=== PATIENT | female | born 1990 | race Hispanic/Latino ===

== ENCOUNTER 2018-06-26 21:03 | Emergency (ER) | payer OTHER ==
[~2018-06-26] VITALS: Ht 175.3 cm; Wt 99.8 kg
--- OUTSIDE RECORDS SUMMARY | 2018-06-26 21:05 | XMS REPORT | Continuity of Care Document ---
Author Author [facility] Interface Address Unknown Phone Unavailable Problems Problem Status Onset Date Classification Date Reported Comments Source Discharge Diagnosis: Suicidal ideation 05/04/2017 05/07/2017 [facility] Discharge Diagnosis: Homicidal ideation 05/04/2017 05/07/2017 [facility] Auditory hallucinations Resolved 05/04/2017 Problem 05/07/2017 [facility] Homicidal thoughts Resolved 05/04/2017 Problem 05/07/2017 [facility] Suicidal thoughts Resolved 05/04/2017 Problem 05/07/2017 [facility] SUICIDAL Active 05/04/2017 [facility] SHOULDER PAIN Active 03/02/2017 [facility] Adjustment disorder with depressed mood Active Problem 05/07/2017 [facility] Simple obesity Active Problem 05/07/2017 [facility] Medications Medication Details Route Status Patient Instructions Ordering Provider Order Date Source Ativan 1 mg, Route: IVP, Drug form: INJ, ONCE, Dosing Weight 95.455, kg, Priority: STAT, Start date: 05/04/17 5:06:00 COUNTER POCKET SEWER, Stop date: 05/04/17 5:06:00 COUNTER POCKET SEWER Inactive 05/04/2017 [facility] Diazepam 5 mg, Route: PO, ONCE, Dosing Weight 95.455, kg, Priority: STAT, Start date: 05/04/17 4:59:00 COUNTER POCKET SEWER, Stop date: 05/04/17 4:59:00 COUNTER POCKET SEWER Inactive 05/04/2017 [facility] Allergies, Adverse Reactions, Alerts Substance Category Reaction Severity Reaction type Status Date Reported Comments Source Immunizations Immunization Date Given Site Status Last Updated Comments Source Results Order Name Results Value Reference Range Date Interpretation Comments Source DRUG SCREEN U Cornelia Scr Negative *NA* (05/04/17 7:49 AM) Negative 05/04/2017 [facility] DRUG SCREEN U Amph Scr Negative *NA* (05/04/17 7:49 AM) Negative 05/04/2017 [facility] DRUG SCREEN U Phencyc Scr Negative *NA* (05/04/17 7:49 AM) Negative 05/04/2017 [facility] DRUG SCREEN U Benzodia Scr Negative *NA* (05/04/17 7:49 AM) Negative 05/04/2017 [facility] DRUG SCREEN U Cannab Scr Negative *NA* (05/04/17 7:49 AM) Negative 05/04/2017 [facility] DRUG SCREEN U Cocaine Scr Negative *NA* (05/04/17 7:49 AM) Negative 05/04/2017 [facility] DRUG SCREEN UDS Note See Note *NA* (05/04/17 7:49 AM) 05/04/2017 [facility] DRUG SCREEN U Opiate Scr Negative *NA* (05/04/17 7:49 AM) Negative 05/04/2017 [facility] CHEM PANEL Glucose Lvl 102 mg/dL 70 - 99 05/04/2017 [facility] CHEM PANEL BUN 8 mg/dL 7 - 22 05/04/2017 [facility] CHEM PANEL eGFR 117 mL/min/1.73m2 05/04/2017 Result Comment: The eGFR is calculated using the CKD-EPI formula. In most young, healthy individuals the eGFR will be >90 mL/min/1.73m2. The eGFR declines with age. An eGFR of 60-89 may be normal in some populations, particularly the elderly, for whom the CKD-EPI formula has not been extensively validated. Use of the eGFR is not recommended in the following populations: Individuals with unstable creatinine concentrations, including patients and those with serious co-morbid conditions. Patients with extremes in muscle mass or diet. The data above are obtained from the National Kidney Disease Education Program (NKDEP) which additionally recommends that when the eGFR is used in patients with extremes of body mass index for purposes of drug dosing, the eGFR should be multiplied by the estimated BMI. [facility] CHEM PANEL Bili Total 0.3 mg/dL 0.2 - 1.3 05/04/2017 [facility] CHEM PANEL Alk Phos 58 unit/L 39 - 136 05/04/2017 [facility] CHEM PANEL AST 12 unit/L 0 - 37 05/04/2017 [facility] CHEM PANEL Total Protein 8.1 g/dL 6.4 - 8.4 05/04/2017 [facility] CHEM PANEL Albumin Lvl 3.4 g/dL 3.5 - 5.0 05/04/2017 [facility] CHEM PANEL Calcium Lvl 8.9 mg/dL 8.5 - 10.5 05/04/2017 [facility] CHEM PANEL ALT 14 unit/L 0 - 65 05/04/2017 [facility] CHEM PANEL Creatinine Lvl 0.71 mg/dL 0.50 - 1.40 05/04/2017 [facility] CHEM PANEL Sodium Lvl 140 meq/L 135 - 145 05/04/2017 [facility] CHEM PANEL Potassium Lvl 3.6 meq/L 3.5 - 5.1 05/04/2017 [facility] CHEM PANEL Chloride Lvl 105 meq/L 95 - 109 05/04/2017 [facility] CHEM PANEL CO2 25 meq/L 24 - 32 05/04/2017 [facility] CHEM PANEL A/G Ratio 0.7 0.7 - 1.6 05/04/2017 [facility] CHEM PANEL B/C Ratio 11 6 - 25 05/04/2017 [facility] CHEM PANEL AGAP 13.6 meq/L 10.0 - 20.0 05/04/2017 [facility] CHEM PANEL Globulin 4.7 g/dL 2.7 - 4.2 05/04/2017 [facility] HEMATOLOGY WBC 11.7 K/CMM 3.7 - 10.4 05/04/2017 [facility] MCH 23.3 pg 27.0 - 31.0 05/04/2017 [facility] HEMATOLOGY Platelet 373 K/CMM 133 - 450 05/04/2017 [facility] HEMATOLOGY RDW 15.5 % 11.5 - 14.5 05/04/2017 [facility] HEMATOLOGY MPV 8.7 fL 7.4 - 10.4 05/04/2017 [facility] HEMATOLOGY MCHC 31.4 g/dL 32.0 - 36.0 05/04/2017 [facility] HEMATOLOGY Hgb 11.1 g/dL 12.0 - 16.0 05/04/2017 [facility] HEMATOLOGY MCV 74.1 fL 80.0 - 98.0 05/04/2017 [facility] HEMATOLOGY RBC 4.76 M/CMM 4.20 - 5.40 05/04/2017 [facility] HEMATOLOGY Hct 35.3 % 36.0 - 48.0 05/04/2017 [facility] HEMATOLOGY Segs-Bands # 9.8 K/CMM 1.5 - 8.1 05/04/2017 [facility] HEMATOLOGY Basophils 0.2 % 0.0 - 1.0 05/04/2017 [facility] HEMATOLOGY Monocytes 5.2 % 2.0 - 12.0 05/04/2017 [facility] HEMATOLOGY Lymphocytes 10.5 % 20.0 - 40.0 05/04/2017 [facility] HEMATOLOGY Eosinophils 0.2 % 0.0 - 4.0 05/04/2017 [facility] HEMATOLOGY Segs 83.9 % 45.0 - 75.0 05/04/2017 [facility] HEMATOLOGY Lymphocytes # 1.2 K/CMM 1.0 - 5.5 05/04/2017 [facility] HEMATOLOGY Monocytes # 0.6 K/CMM 0.0 - 0.8 05/04/2017 [facility] HEMATOLOGY Microcyte 1+ *ABN* (05/04/17 4:29 AM) None Seen 05/04/2017 [facility] TOXICOLOGY Salicylate Lvl null 0.0 - 30.0 05/04/2017 [facility] TOXICOLOGY Acetaminoph Lvl <2
(05/04/17 4:29 AM) 10 - 20 05/04/2017 [facility] TOXICOLOGY Ethanol Lvl null 05/04/2017 [facility] TOXICOLOGY Etoh (%) null 05/04/2017 [facility] Vital Signs Vital Sign Value Date Comments Source Temperature Oral (F) 98.7 F 05/04/2017 [facility] Respitory Rate 16 05/04/2017 [facility] Heart Rate 98 05/04/2017 [facility] Systolic (mm Hg) 111 05/04/2017 [facility] Diastolic (mm Hg) 72 05/04/2017 [facility] Temperature Oral (F) 98.7 F 05/04/2017 [facility] Systolic (mm Hg) 109 05/04/2017 [facility] Diastolic (mm Hg) 61 05/04/2017 [facility] Respitory Rate 16 05/04/2017 [facility] Heart Rate 101 05/04/2017 [facility] Systolic (mm Hg) 115 05/04/2017 [facility] Diastolic (mm Hg) 79 05/04/2017 [facility] Heart Rate 92 05/04/2017 [facility] Respitory Rate 18 05/04/2017 [facility] Temperature Oral (F) 98.6 F 05/04/2017 [facility] Weight 95.455 05/04/2017 [facility] BMI Calculated 33.97 05/04/2017 [facility] Height 167.64 cm 05/04/2017 [facility] Height 170.18 cm 03/03/2017 [facility] Weight 93.182 03/03/2017 [facility] BMI Calculated 32.17 03/03/2017 [facility] Heart Rate 80 03/03/2017 [facility] Systolic (mm Hg) 124 03/03/2017 [facility] Diastolic (mm Hg) 78 03/03/2017 [facility] Respitory Rate 20 03/03/2017 [facility] Temperature Oral (F) 98.2 F 03/03/2017 [facility] Encounters Location Location Details Encounter Type Encounter Number Reason For Visit Attending Provider ADM Date DC Date Status Source [facility] Emergency [id number] Zonia Massiel 03/02/2017 03/03/2017 [facility] Emergency [id number] Cale Madrid 05/04/2017 05/04/2017 [facility] Outpatient [id number] JAMES WASHBURN 05/04/2017 Active [facility] Procedures Procedure Code Date Perfomer Comments Source Procedure<sup>1</sup> [id number] bunionectomy [facility]
--- OUTSIDE RECORDS SUMMARY | 2018-06-26 21:05 | XMS REPORT | Summary of Care ---
Author Author [facility] Organization [facility] Address Unknown Phone Unavailable Encounter HQ Debbei_estella(BARTOLO) [id number] Date(s): 03/02/17 - 03/02/17 [facility] [address] [place] [address]- [phone] Discharge Disposition: Non-Emergent Attending Physician: Zonia Rankin MD Vital Signs Most recent to 1 oldest [Reference Range]: Height 170.18 cm (03/02/17 7:02 PM) Temperature Oral 98.2 DegF [96.4-99.1 DegF] (03/02/17 7:02 PM) Blood Pressure 124/78 mmHg [90-140/60-90 mmHg] (03/02/17 7:02 PM) Respiratory Rate 20 BRMIN [14-20 BRMIN] (03/02/17 7:02 PM) Peripheral Pulse 80 bpm Rate [60-100 bpm] (03/02/17 7:02 PM) Weight 93.182 kg (03/02/17 7:02 PM) Body Mass Index 32.17 m2 (03/02/17 7:02 PM) Problem List No data available for this section Allergies, Adverse Reactions, Alerts Substance Reaction Severity Status NKDA Active Medications No data available for this section Results No data available for this section Immunizations No data available for this section Procedures No data available for this section Social History No data available for this section Assessment and Plan No data available for this section
--- OUTSIDE RECORDS SUMMARY | 2018-06-26 21:06 | XMS REPORT | Summary of Care ---
Author Author [facility] Organization [facility] Address Unknown Phone Unavailable Encounter HQ Payam(BARTOLO) [id number] Date(s): 05/04/17 - 05/04/17 [facility] [address] [place] [address]- [phone] Discharge Diagnosis: Suicidal ideation Discharge Diagnosis: Homicidal ideation Discharge Disposition: Home or Self Care Attending Physician: Cale Madrid DO Vital Signs 1 2 3 Most recent to oldest [Reference Range]: 167.64 cm (05/04/17 3:21 AM) Height 98.7 DegF (05/04/17 3:35 PM) 98.7 DegF (05/04/17 2:29 PM) 98.6 DegF (05/04/17 11:30 AM) Temperature Oral [96.4-99.1 DegF] 111/72 mmHg (05/04/17 3:35 PM) 109/61 mmHg (05/04/17 2:29 PM) 115/79 mmHg (05/04/17 12:30 PM) Blood Pressure [90-140/60-90 mmHg] 16 BRMIN (05/04/17 3:35 PM) 16 BRMIN (05/04/17 2:29 PM) 18 BRMIN (05/04/17 12:30 PM) Respiratory Rate [14-20 BRMIN] 98 bpm (05/04/17 3:35 PM) 101 bpm *HI* (05/04/17 2:29 PM) 92 bpm (05/04/17 12:30 PM) Peripheral Pulse Rate [60-100 bpm] 95.455 kg (05/04/17 3:21 AM) Weight 33.97 m2 (05/04/17 3:21 AM) Body Mass Index Problem List Condition Effective Dates Status Health Status Informant Adjustment disorder Active with depressed mood(Confirmed) Auditory 05/04/17 Resolved hallucinations(Confi rmed) Homicidal 05/04/17 Resolved thoughts(Confirmed) Simple Active obesity(Confirmed) Suicidal 05/04/17 Resolved thoughts(Confirmed) Allergies, Adverse Reactions, Alerts Substance Reaction Severity Status NKDA Active Medications Ativan 1 mg, Route: IVP, Drug form: INJ, ONCE, Dosing Weight 95.455, kg, Priority: STAT , Start date: 05/04/17 5:06:00 PEN TESTER, Stop date: 05/04/17 5:06:00 PEN TESTER Start Date: 05/04/17 Stop Date: 05/04/17 Status: Completed diazepam 5 mg, Route: PO, ONCE, Dosing Weight 95.455, kg, Priority: STAT, Start date: 08/16 4:59:00 PEN TESTER, Stop date: 05/04/17 4:59:00 PEN TESTER Start Date: 05/04/17 Stop Date: 05/04/17 Status: Discontinued Results ELECTROLYTES Most recent to 1 oldest [Reference Range]: Sodium Lvl [135-145 140 mEq/L mEq/L] (05/04/17 4:29 AM) Potassium Lvl 3.6 mEq/L [3.5-5.1 mEq/L] (05/04/17 4:29 AM) Chloride Lvl [95-109 105 mEq/L mEq/L] (05/04/17 4:29 AM) CO2 [24-32 mEq/L] 25 mEq/L (05/04/17 4:29 AM) AGAP [10.0-20.0 13.6 mEq/L mEq/L] (05/04/17 4:29 AM) CHEM PANEL Most recent to 1 oldest [Reference Range]: Creatinine Lvl 0.71 mg/dL [0.50-1.40 mg/dL] (05/04/17 4:29 AM) eGFR 117 mL/min/1.73m2 1 *NA* (05/04/17 4:29 AM) BUN [7-22 mg/dL] 8 mg/dL (05/04/17 4:29 AM) B/C Ratio [6-25] 11 (05/04/17 4:29 AM) Glucose Lvl [70-99 102 mg/dL mg/dL] *HI* (05/04/17 4:29 AM) Total Protein 8.1 g/dL [6.4-8.4 g/dL] (05/04/17 4:29 AM) Albumin Lvl [3.5-5.0 3.4 g/dL g/dL] *LOW* (05/04/17 4:29 AM) Globulin [2.7-4.2 4.7 g/dL g/dL] *HI* (05/04/17 4:29 AM) A/G Ratio [0.7-1.6] 0.7 (05/04/17 4:29 AM) Calcium Lvl 8.9 mg/dL [8.5-10.5 mg/dL] (05/04/17 4:29 AM) ALT [0-65 unit/L] 14 unit/L (05/04/17 4:29 AM) AST [0-37 unit/L] 12 unit/L (05/04/17 4:29 AM) Alk Phos [39-136 58 unit/L unit/L] (05/04/17 4:29 AM) Bili Total [0.2-1.3 0.3 mg/dL mg/dL] (05/04/17 4:29 AM) 1Result Comment: The eGFR is calculated using the [...] from the National Kidney Disease Education Program ( NKDEP) which additionally recommends that when the eGFR is used in patients with extremes of body mass index for purposes of drug dosing, the eGFR should be mul tiplied by the estimated BMI. DRUG SCREEN Most recent to 1 oldest [Reference Range]: U Amph Scr Negative [Negative] *NA* (05/04/17 7:49 AM) U Cornelia Scr Negative [Negative] *NA* (05/04/17 7:49 AM) U Benzodia Scr Negative [Negative] *NA* (05/04/17 7:49 AM) U Cocaine Scr Negative [Negative] *NA* (05/04/17 7:49 AM) U Opiate Scr Negative [Negative] *NA* (05/04/17 7:49 AM) U Phencyc Scr Negative [Negative] *NA* (05/04/17 7:49 AM) U Cannab Scr Negative [Negative] *NA* (05/04/17 7:49 AM) UDS Note See Note *NA* (05/04/17 7:49 AM) TOXICOLOGY Most recent to 1 oldest [Reference Range]: Acetaminoph Lvl <2 [10-20] (05/04/17 4:29 AM) Salicylate Lvl <1.7 mg/dL [0.0-30.0 mg/dL] (05/04/17 4:29 AM) Etoh (%) <.003 % *NA* (05/04/17 4:29 AM) Ethanol Lvl <3 mg/dL *NA* (05/04/17 4:29 AM) HEMATOLOGY Most recent to 1 oldest [Reference Range]: WBC [3.7-10.4 K/CMM] 11.7 K/CMM *HI* (05/04/17 4:29 AM) RBC [4.20-5.40 4.76 M/CMM M/CMM] (05/04/17 4:29 AM) Hgb [12.0-16.0 g/dL] 11.1 g/dL *LOW* (05/04/17 4:29 AM) Hct [36.0-48.0 %] 35.3 % *LOW* (05/04/17 4:29 AM) MCV [80.0-98.0 fL] 74.1 fL *LOW* (05/04/17 4:29 AM) MCH [27.0-31.0 pg] 23.3 pg *LOW* (05/04/17 4:29 AM) MCHC [32.0-36.0 31.4 g/dL g/dL] *LOW* (05/04/17 4:29 AM) RDW [11.5-14.5 %] 15.5 % *HI* (05/04/17 4:29 AM) Platelet [133-450 373 K/CMM K/CMM] (05/04/17 4:29 AM) MPV [7.4-10.4 fL] 8.7 fL (05/04/17 4:29 AM) Segs [45.0-75.0 %] 83.9 % *HI* (05/04/17 4:29 AM) Lymphocytes 10.5 % [20.0-40.0 %] *LOW* (05/04/17 4:29 AM) Monocytes [2.0-12.0 5.2 % %] (05/04/17 4:29 AM) Eosinophils [0.0-4.0 0.2 % %] (05/04/17 4:29 AM) Basophils [0.0-1.0 0.2 % %] (05/04/17 4:29 AM) Segs-Bands # 9.8 K/CMM [1.5-8.1 K/CMM] *HI* (05/04/17 4:29 AM) Lymphocytes # 1.2 K/CMM [1.0-5.5 K/CMM] (05/04/17 4:29 AM) Monocytes # [0.0-0.8 0.6 K/CMM K/CMM] (05/04/17 4:29 AM) Microcyte [None 1+ Seen] *ABN* (05/04/17 4:29 AM) Immunizations No data available for this section Procedures Procedure Date Related Diagnosis Body Site Procedure1 1bunionectomy Social History Social History Type Response Smoking Status Never smoker; Exposure to Tobacco Smoke None; Cigarette Smoking Last 365 Days No; Reg Smoking Cessation Counseling No Assessment and Plan No data available for this section
[2018-06-26] MEDS ORDERED: ONDANSETRON HCL INJ 2MG/ML 2ML 2 MG/ML VIAL IV PRN (21:30)
[2018-06-26] MEDS ORDERED: ACETAMINOPHEN 325 MG TAB PO ONE (21:30)
[2018-06-26] MEDS ORDERED: IBUPROFEN 200 MG TAB PO SCH (21:30)
== END 2018-06-26 22:30 | disposition home or self-care (01) ==
LOC: FSED 21:03
DX: R11.2 Nausea with vomiting, unspecified (principal); R19.7 Diarrhea, unspecified; A08.4 Viral intestinal infection, unspecified
CPT/HCPCS: 81003; 87400; 99283; J2405